=== PATIENT | female | born 1970 | race African-American/Black ===

== ENCOUNTER 2018-11-18 21:34 | Emergency (ER) | payer SELFPAY ==
[~2018-11-18] VITALS: Ht 152.4 cm; Wt 62.0 kg
[2018-11-18 22:17] VITALS: BP 140/96
== END 2018-11-18 22:25 | disposition left against medical advice (07) ==
LOC: ER 21:34
DX: Z53.21 Procedure and treatment not carried out due to patient leaving prior to being seen by health care provider (principal)